=== PATIENT | female | born 1955 | race Caucasian/White ===

== ENCOUNTER 2017-05-20 18:39 | Emergency (ER) | payer OTHER ==
[~2017-05-20] VITALS: Ht 172.7 cm; Wt 63.5 kg
[2017-05-20 19:02] VITALS: BP 100/69
--- NOTE | 2017-05-20 20:11 | ED UPPER/LOWER EXTREMITY COMPL ---
History of Present Illness General Chief Complaint: Upper Extremity Injury Stated Complaint: PT FELL AND THINKS BROKE THE LT ARM Source: patient Exam Limitations: no limitations Vital Signs & Intake/Output Vital Signs & Intake/Output Vital Signs Date Time Temp Pulse Resp B/P B/P Pulse O2 O2 Flow FiO2 Mean Ox Delivery Rate 05/20 1901 97.9 64 18 100/69 99 Room Air Allergies Coded Allergies: No Known Allergies (05/20/17) Reconcile Medications Hydromorphone HCl (Dilaudid) 2 MG TABLET 1 TAB PO BIDP PRN PAIN Triage Note: PT TO ED FOR L WRIST AND FOREARM PAIN S/P TRIP AND FALL AT HOME, SLIGHT SWELLING NOTED TO L LATERAL WRIST AREA, +PULSES AND SENSATION. MEDICATED WITH MOTRIN AND PLACED IN A SLING IN TRIAGE Triage Nurses Notes Reviewed? yes Onset: Abrupt Duration: constant Timing: single episode today Severity: severe Severity Numbers: 8 HPI: Patient is a 61-year-old female who presents emergency and that this evening patient while ambulating at her son's house in which she was noted to be dark she fell lost her footing and landed to the floor directly on the left forearm elbow and wrist. Patient complains of acute onset of it attending sharp stabbing severe pain denies any preceding episode lightheaded sensation or dizziness denies any head strike back pain neck pain left shoulder pain and is otherwise without complaints. Past History Travel History Traveled to [place] past 21 day No Medical History Any Pertinent Medical History? see below for history Cardiovascular: hypertension Endocrine: hypothyroidism Surgical History Surgical History: non-contributory Psychosocial History What is your primary language Montenegrin Tobacco Use: Never used ETOH Use: denies use Illicit Drug Use: denies illicit drug use Family History Hx Contributory? No Review of Systems Review of Systems Constitutional: Reports: no symptoms. EENTM: Reports: no symptoms. Respiratory: Reports: no symptoms. Cardiovascular: Reports: no symptoms. Gastrointestinal/Abdominal: Reports: no symptoms. Genitourinary: Reports: no symptoms. Musculoskeletal: Reports: see HPI, joint pain. Skin: Reports: no symptoms. Neurological/Psychological: Reports: no symptoms. Hematologic/Endocrine: Reports: no symptoms. Immunological: Reports: no symptoms. All Other Systems: Reviewed and Negative Physical Exam Physical Exam General Appearance: moderate distress Head: atraumatic Eyes: Bilateral: normal appearance. Ears, Nose, Throat: hearing grossly normal Neck: normal inspection, no midline tenderness Cardiovascular/Respiratory: no respiratory distress Peripheral Pulses: 2+ radial (L) Back: no vertebral tenderness Shoulder Left: normal inspection, NONTENDER Neurologic/Tendon: normal sensation, normal motor functions, normal tendon functions, responds to pain, no evidence tendon injury, no pulse deficit Skin: intact, normal color, warm/dry Diagram Left Arm Front 1) Generalized left wrist forearm and elbow pain noted mild skin abrasion noted to forearm Radial pulse +2 dermatomes intact capillary refill less than 2 seconds Progress Differential Diagnosis: arterial insufficiency, compartment syndrome, contusion, dislocation, DVT, fracture, gout, septic arthritis, sprain, tendon injury Plan of Care: Orders Procedure Date/time Status Durable Medical Equipment 05/20 1906 Active Current Medications Sig/Megha Start time Last Medication Dose Stop Time Status Admin Hydromorphone HCl 2 MG ONCE ONE 05/20 2129 CANr (Dilaudid) 05/20 2130 Lorazepam 2 MG ONCE ONE 05/20 2114 UNVr 05/20 (Ativan) 05/20 Diazepam 5 MG ONCE ONE 05/20 2099 UNVr (Valium) 05/20 2100 Patient was neurovascularly intact to left upper extremity, a left posterior arm splint at 90 of elbow flexion was placed with orthopedicGLASS, WEBRIL, AND Jh wrap and shoulder immobilizer was placed, pre-and post-neurovascular was intact. Patient was strongly advised to follow-up with discharge instructions and plan. Patient also had relief of pain with medications administered in the emergency room prior to discharge Diagnostic Imaging: Viewed by Me: Radiology Read. Radiology Impression: fracture Comments: PATIENT: BRISEIDA HINDS PRESENT AGE: 61 PATIENT ACCOUNT NO: [id number] : 59 LOCATION: [facility] ORDERING PHYSICIAN: Lei Strickland DO SERVICE DATE: 05/20/17 EXAM TYPE: RAD - XRY-ELBOW 3 OR MORE VIEWS, L; XRY-WRIST COMPLETE-LEFT EXAMINATION: XRY-ELBOW 3 OR MORE VIEWS, L, XRY-WRIST COMPLETE-LEFT CLINICAL INFORMATION: Left elbow and forearm trauma COMPARISON: None. TECHNIQUE: AP and crosstable lateral views of left wrist. AP, lateral, and both oblique views of the left elbow. FINDINGS: No fracture of the left wrist seen. There is mild degenerative arthrosis of the first carpometacarpal joint. Intercarpal joint spaces are maintained. Minimally displaced fracture of the radial neck. There is enthesopathy of the distal triceps tendon attachment. IMPRESSION: Minimally displaced radial neck fracture. Mild degenerative arthrosis of the first carpometacarpal joint. DICTATED BY: Silverio Jacob MD DATE/TIME DICTATED:05/20/17 Departure Departure Disposition: HOME OR SELF CARE Condition: Stable Clinical Impression Primary Impression: Fracture of radial neck, left, closed Referrals: Talia Stafford MD (PCP/Family) Additional Instructions: As discussed please follow-up with your orthopedic doctor on Monday for further evaluation treatment, begin the prescription of dialudid for pain the splint and shoulder immobilizer that has been placed in TO YOU in the emergency room, leave this on at all times UNTIL you follow up with the orthopedic doctor, if symptoms worsen return to emergency him, please provide the orthopedic doctor with the copy of CD provided to from the x-rays today Prescriptions are waiting at [facility] Departure Forms: Customer Survey General Discharge Information Prescriptions: Current Visit Scripts Hydromorphone HCl (Dilaudid) 1 TAB PO BIDP PRN PAIN #12 TAB
--- NOTE | 2017-05-20 20:56 | RADIOLOGY REPORT ---
EXAMINATION: XRY-ELBOW 3 OR MORE VIEWS, L, XRY-WRIST COMPLETE-LEFT CLINICAL INFORMATION: Left elbow and forearm trauma COMPARISON: None. TECHNIQUE: AP and crosstable lateral views of left wrist. AP, lateral, and both oblique views of the left elbow. FINDINGS: No fracture of the left wrist seen. There is mild degenerative arthrosis of the first carpometacarpal joint. Intercarpal joint spaces are maintained. Minimally displaced fracture of the radial neck. There is enthesopathy of the distal triceps tendon attachment. IMPRESSION: Minimally displaced radial neck fracture. Mild degenerative arthrosis of the first carpometacarpal joint.
[2017-05-20] MEDS ORDERED: DILAUDID2 M1 PO (21:32)
== END 2017-05-20 21:44 ==
LOC: ERH 18:39
DX: S52.132A Displaced fracture of neck of left radius, initial encounter for closed fracture (principal); W19.XXXA Unspecified fall, initial encounter; Y93.01 Activity, walking, marching and hiking; Y92.009 Unspecified place in unspecified non-institutional (private) residence as the place of occurrence of the external cause
CPT/HCPCS: 73080-LT; 73110-LT; 96372